=== PATIENT | female | born 1975 | race Caucasian/White ===

== ENCOUNTER → 2017-10-01 | Outpatient (CLI) | payer OTHER | LOC: CIMAGING 14:45 | PROVIDERS: ATTEND Internal Medicine | DX: Z12.31 Encounter for screening mammogram for malignant neoplasm of breast (principal); Z80.3 Family history of malignant neoplasm of breast | CPT/HCPCS: G0202 ==

== ENCOUNTER → 2018-01-07 | Outpatient (CLI) | payer OTHER | LOC: FIMAGING 10:19 | PROVIDERS: ATTEND Internal Medicine Endocrinology, Diabetes & Metabolism | DX: E04.2 Nontoxic multinodular goiter (principal) | CPT/HCPCS: 76536-PO ==

== ENCOUNTER → 2018-03-31 | Outpatient (CLI) | payer OTHER | LOC: CIMAGING 12:32 | PROVIDERS: ATTEND Internal Medicine | DX: N94.6 Dysmenorrhea, unspecified (principal) | CPT/HCPCS: 76856-PO ==

== ENCOUNTER → 2018-10-03 | Outpatient (CLI) | payer OTHER | LOC: CIMAGING 08:00 | PROVIDERS: ATTEND Internal Medicine | DX: Z12.31 Encounter for screening mammogram for malignant neoplasm of breast (principal) ==

== ENCOUNTER → 2019-01-20 | Outpatient (CLI) | payer OTHER | LOC: CIMAGING 14:04 | PROVIDERS: ATTEND Internal Medicine Endocrinology, Diabetes & Metabolism | DX: E04.2 Nontoxic multinodular goiter (principal) | CPT/HCPCS: 76536-PO ==